=== PATIENT | female | born 1990 | race Caucasian/White ===

== ENCOUNTER 2017-09-13 16:54 | Emergency (ER) | payer MEDICAID ==
[~2017-09-13] VITALS: Ht 149.9 cm; Wt 60.8 kg
--- NOTE | 2017-09-13 18:15 | NUR ---
Patient discharged to home in stable conditon. Written and verbal after care instructions given. Patient verbalizes understanding of instructions.PT WALKS IN STEADY GAIT. NO RESP DISTRESS.
[2017-09-13 18:16] VITALS: BP 119/71
== END 2017-09-13 18:18 | disposition home or self-care (01) ==
LOC: ER 16:54
DX: J40 Bronchitis, not specified as acute or chronic (principal)
CPT/HCPCS: 87400; 99284; A4663